=== PATIENT | male | born 1940 | race American Indian/Alaskan Native ===

== ENCOUNTER 2018-09-02 09:25 | Outpatient (CLI) | payer MEDICARE, BC | END 2018-09-02 09:26 | disposition home or self-care (01) | LOC: PAT 09:25 ==

== ENCOUNTER 2018-10-08 09:09 | Day surgery (SDC) | payer MEDICARE, BC ==
[2018-09-02 12:11] VITALS: BMI 22.4
[2018-10-08 10:02] VITALS: O2SAT 98
[2018-10-08] MEDS ORDERED: Iohexol 240 (50 ml) ONE ×2 (11:37→11:38)
[2018-10-08] MEDS ORDERED: cefTRIAXone (Rocephin) 1 gm Inj ONE ×2 (11:37→12:01)
[2018-10-08] MEDS ORDERED: Propofol 10 mg/ml Inj (20 ML) ONE (11:51)
[2018-10-08] MEDS ORDERED: cefTRIAXone 1 GM in NS 100 ML BAG IVPB ONE (11:55)
[2018-10-08] MEDS ORDERED: ePHEDrine 50 mg/ml Inj ONE (11:59)
[2018-10-08] MEDS ORDERED: Phenylephrine 10 mg/ml Inj ONE (12:05)
[2018-10-08] MEDS ORDERED: Sodium Chloride 0.9% 1,000 ML IV SCH (12:45)
[2018-10-08 13:26] VITALS: TEMP 97.4
[2018-10-08 14:54] VITALS: BP 130/76; PULSE 58; RESP 16
--- NOTE | 2018-10-08 14:54 | RAD ---
Date of service: 10/08/2018 PROCEDURE: Retrograde pyelogram HISTORY: R/O OBSTRUCTION COMPARISON: TECHNIQUE: 33.6 sec of fluoro time. Cumulative dose 7.91 mGy. Eighteen images submitted FINDINGS: The right ureter and collecting system are unremarkable. There is mild to moderate dilatation of the left ureter and left renal collecting system. There are no filling defects seen. IMPRESSION: As above
--- NOTE | 2018-10-09 04:02 | OP ---
PROCEDURE DATE: 10/08/2018 PREOPERATIVE DIAGNOSIS: Gross hematuria. POSTOPERATIVE DIAGNOSIS: Gross hematuria. PROCEDURE: Cystoscopy with bilateral retrograde pyelogram. ATTENDING SURGEON: Percy Linares MD ANESTHESIA: General. SPECIMEN: There were none. DRAINS: There were none. COMPLICATIONS: None. OPERATIVE FINDINGS: After informed consent was obtained, the patient was taken to the operating room, placed on operating table. Anesthesia was administered. The patient was placed in dorsal lithotomy position and prepped and draped in usual sterile fashion. A 22-Moh[place] cystoscope was placed in the patient's urethra and advanced proximally under direct vision until the bladder was entered. 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 There was no evidence of any erosion into the urethra, prosthesis was in a deflated state. A full survey inspection of bladder was performed which revealed no stones, papillary tumors, or foreign bodies. There was grade one trabeculation noted with a few small cellules on the posterior wall. At this point, a cone-tip catheter was introduced through the cystoscope and retrograde pyelograms were performed. First, the cone-tip catheter was introduced into the left ureteral orifice. While inside the orifice, contrast was then instilled into the system during real time fluoroscopy. There was some J-hooking of the distal ureter noted. There were no filling defects noted throughout the course of the left ureter. It was slightly difficult to get sufficient amount of contrast into the left ureter, and at this point, the cone-tip catheter was withdrawn. A 5-[place]awk [place] catheter was introduced with a wire, and the [place] catheter was able to be manipulated around the distal curve of the ureter and further contrast was instilled. The entire ureter showed no evidence of filling defect. There was no filling defect noted in the kidneys or calyceal system. On drainage films, the contrast was noted to be draining from the kidney down the ureter and into the bladder without any evidence of obstruction. At this point, the cone-tip catheter was repassed and guided into the right ureteral orifice, right retrograde pyelogram was performed. The right retrograde pyelogram also showed no evidence of filling defects or obstruction. Right system was also noted to drain promptly. 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 At this point, the procedure was completed, the bladder was drained and the cystoscope was removed. The patient received IV antibiotics prior to start of the procedure, and the films were submitted to radiology for interpretation. The patient tolerated the procedure well. He was returned to the supine position and taken to the recovery room in awake and stable condition. Percy Linares MD
== END 2018-10-08 17:30 | disposition home or self-care (01) ==
LOC: SDS 09:09
PROVIDERS: ATTEND Urology
DX: R31.0 Gross hematuria (principal)
CPT/HCPCS: 52005; 74420; C1758 ×2; C1769; J0696; J2370; J2704; J3010; J7030; J7120; Q9966